=== PATIENT | male | born 1965 | race African-American/Black ===

== ENCOUNTER 2023-08-12 09:33 | Inpatient (IN) | payer MEDICAID, OTHER ==
[~2023-08-12] VITALS: Ht 177.8 cm; Wt 83.6 kg
[2023-08-12 10:17] LABS: BG BASE EXCESS 0.7 mmol/L (-2.0-2.0); BG CARBOXYHEMOGLOBIN 0.4 % (0.5-1.5); BG FRACTION INSPIRED OXYGEN 100; BG METHEMOGLOBIN 0.2 % (0.0-1.5); BG OXYHEMOGLOBIN 96.4 % (94.0-97.0); BG PCO2 30.2 mmHg (35.0-45.0); BG PO2 88.3 mmHg (75.0-100.0); BG SAMPLE SITE RIGHT RADIAL; BG TOTAL HEMOGLOBIN 13.1 g/dL (12.0-18.0); BG VENT MODE MASK - NRB
[2023-08-12 10:27] LABS: HEMATOCRIT. 37.5 % (42.0-52.0); HEMOGLOBIN. 11.7 g/dL (14.0-18.0); MEAN CORPUSCULAR HEMOGLOBIN 22.3 pg (28.0-32.0); MEAN CORPUSCULAR HGB CONC 31.1 g/dL (31.0-37.0); MEAN CORPUSCULAR VOLUME 71.8 fL (80.0-94.0); MEAN PLATELET VOLUME 8.8 fl (7.4-10.4); PLATELET 184 x1000/uL (130-400); RED BLOOD CELL COUNT 5.23 mill/uL (4.7-6.1); RED CELL DISTRIBUTION WIDTH 20.6 % (11.6-14.6); WHITE BLOOD COUNT 5.9 x1000/uL (4.5-11.0)
[2023-08-12 10:31] LABS: DIFFERENTIAL COMMENT 1
[2023-08-12 10:39] LABS: INR 1.2
[2023-08-12 11:15] LABS: CALCIUM 8.4 mg/dL (8.7-10.4)
[2023-08-12 11:16] LABS: POTASSIUM 2.3 mEq/L (3.5-5.1)
[2023-08-12 11:20] LABS: CREATININE 1.7 mg/dL (0.6-1.3)
[2023-08-12 11:48] LABS: CLARITY URINE CLEAR (CLEAR); COLOR URINE YELLOW (YELLOW); GLUCOSE URINE NEGATIVE (NEGATIVE); KETONES URINE NEGATIVE (NEGATIVE); LEUKOCYTE ESTERASE URINE NEGATIVE (NEGATIVE); NITRITE URINE NEGATIVE (NEGATIVE); OCCULT BLOOD URINE NEGATIVE (NEGATIVE); PH URINE 6.5 (4.5-8.0); PROTEIN URINE NEGATIVE (NEGATIVE); SPECIFIC GRAVITY URINE 1.015 (1.005-1.030)
[2023-08-12] MEDS: POTASSIUM CHLORIDE 20MEQ/PACKET PO ONE (12:11)
[2023-08-12 13:10] LABS: ANISOCYTOSIS 1+; MICROCYTOSIS 1+
[2023-08-12 13:12] LABS: PLATELET ESTIMATE NORMAL
[2023-08-12] MEDS: SODIUM CHLORIDE 0.9% 250 ML IV NR (13:40)
[2023-08-12] MEDS: IPRATROPIUM/ALBUTEROL 0.5-3(2.5)MG/3ML NEB HHN PRN (14:32)
[2023-08-12] MEDS: ENOXAPARIN 80MG/0.8ML SYR SUBCUT ONE (17:02)
[2023-08-12 20:00] VITALS: PULSE 81; RESP 16
[2023-08-12] MEDS: METOPROLOL TARTRATE 50MG TABLET PO SCH (20:30)
[2023-08-12] MEDS ORDERED: AZITHROMYCIN 500MG/250ML 250 ML IV SCH (20:30)
[2023-08-12 21:12] LABS: TROPONIN I HIGH SENSITIVITY 14 ng/L (3.0-53)
[2023-08-12 22:14] VITALS: BP 107/78; PULSE 78; RESP 16; TEMP 98.7
[2023-08-12 22:24] VITALS: BP 107/78; PULSE 78; RESP 18; TEMP 98.7
[2023-08-12] MEDS: METHYLPREDNISOLONE SOD SUCC 40MG/ML (ACT-O-VIAL) IV SCH (23:38)
[2023-08-12] MEDS: CEFTRIAXONE 1GM/50ML 50 ML IV SCH (23:38)
[2023-08-12] MEDS: APIXABAN 5 MG TABLET PO SCH (23:38)
[2023-08-13] VITALS (12 sets, daily range): BP systolic 100–112; BP diastolic 71–80; PULSE 73–97; RESP 16–25; TEMP 97.5–98.5; O2SAT 91–98
[2023-08-13] MEDS ORDERED: ONDANSETRON HCL 4MG/2ML INJ IV PRN (00:30)
[2023-08-13] MEDS ORDERED: ACETAMINOPHEN 325MG TABLET PO PRN (00:30)
[2023-08-13 01:58] LABS: *AMPHETAMINES SCREEN URINE NEGATIVE (NEGATIVE); *BARBITURATES SCREEN URINE NEGATIVE (NEGATIVE); *BENZODIAZEPINES SCREEN URINE NEGATIVE (NEGATIVE); *COCAINE SCREEN URINE NEGATIVE (NEGATIVE); CANNABINOID URINE SCREEN NEGATIVE (NEGATIVE); ECSTASY MDMA SCREEN URINE NEGATIVE (NEGATIVE); METHADONE URINE SCREEN NEGATIVE (NEGATIVE); OPIATES URINE SCREEN NEGATIVE (NEGATIVE); PHENCYCLIDINE URINE SCREEN NEGATIVE (NEGATIVE)
[2023-08-13 07:26] LABS: HEPATITIS B SURFACE ANTIGEN NEGATIVE (Negative)
[2023-08-13 07:47] LABS: HEPATITIS C AB NON REACTIVE (Neg) (Negative)
[2023-08-13 09:07] LABS: BASOPHILS % 0.1 % (0.0-2.0); DIFFERENTIAL COMMENT 0; EOSINOPHILS % 0.1 % (0.0-5.0); HEMATOCRIT. 36.2 % (42.0-52.0); HEMOGLOBIN. 11.4 g/dL (14.0-18.0); LYMPHOCYTES % 8.4 % (20.0-50.0); MEAN CORPUSCULAR HEMOGLOBIN 22.5 pg (28.0-32.0); MEAN CORPUSCULAR HGB CONC 31.5 g/dL (31.0-37.0); MEAN CORPUSCULAR VOLUME 71.3 fL (80.0-94.0); MONOCYTES % 2.5 % (2.0-8.0); NEUTROPHILS % 88.9 % (40.0-76.0); PLATELET 159 x1000/uL (130-400); RED BLOOD CELL COUNT 5.07 mill/uL (4.7-6.1); RED CELL DISTRIBUTION WIDTH 20.8 % (11.6-14.6); WHITE BLOOD COUNT 3.9 x1000/uL (4.5-11.0)
[2023-08-13 09:15] LABS: CHLORIDE 101 mEq/L (98-107); SODIUM 133 mEq/L (136-145)
[2023-08-13 09:16] LABS: CALCIUM 8.5 mg/dL (8.7-10.4); CARBON DIOXIDE 24 mEq/L (21-32)
[2023-08-13 09:21] LABS: CREATININE 1.5 mg/dL (0.6-1.3); GLUCOSE 149 mg/dL (70-105); UREA NITROGEN BLOOD 33 mg/dL (9-23)
[2023-08-13 09:23] LABS: PHOSPHORUS 2.4 mg/dL (2.5-4.9)
[2023-08-13] MEDS: IPRATROPIUM/ALBUTEROL 0.5-3(2.5)MG/3ML NEB HHN SCH (09:33)
[2023-08-13] MEDS ORDERED: AZITHROMYCIN 250 MG TABLET PO SCH (10:00)
[2023-08-13] MEDS ORDERED: APIX5TAB PO (11:55)
[2023-08-13] MEDS ORDERED: TADA20TA PO (12:01)
[2023-08-13] MEDS ORDERED: AMBR10TA3 PO (12:03)
[2023-08-13] MEDS ORDERED: FURO40TA5 PO (12:06)
[2023-08-13 15:57] LABS: POTASSIUM 2.7 mEq/L (3.5-5.1)
[2023-08-13] MEDS: POTASSIUM CHLORIDE 20MEQ TABLET SR PO SCH (21:32)
[2023-08-13] MEDS: SILDENAFIL CITRATE 20MG TABLET PO SCH (21:33)
[2023-08-13] MEDS: FUROSEMIDE 40MG TABLET PO SCH (21:34)
[2023-08-13] MEDS: TRAZODONE HCL 50MG TABLET PO SCH (21:35)
[2023-08-14] VITALS (12 sets, daily range): BP systolic 80–106; BP diastolic 56–81; PULSE 70–88; RESP 14–24; TEMP 97.2–97.9; O2SAT 92–98
[2023-08-14] MEDS: POTASSIUM CHLORIDE 20MEQ TABLET SR PO SCH (03:30)
[2023-08-14] MEDS: LACTULOSE 20G/30ML UDC PO NR (17:02)
[2023-08-15] VITALS (11 sets, daily range): BP systolic 97–127; BP diastolic 70–98; PULSE 78–96; RESP 18–32; TEMP 97.4–98.3; O2SAT 94–97
[2023-08-15] MEDS: DOCUSATE SODIUM 250MG CAPSULE PO SCH (08:16)
[2023-08-15] MEDS: LACTULOSE 20G/30ML UDC PO NR (13:11)
[2023-08-15] MEDS ORDERED: TADA20TA31 PO (13:46)
[2023-08-15] MEDS ORDERED: AMBR10TA3 PO (13:51)
[2023-08-15] MEDS ORDERED: APIX5TAB PO (13:51)
[2023-08-15] MEDS ORDERED: FURO40TA5 PO (13:52)
[2023-08-15 16:55] LABS: CHLORIDE 104 mEq/L (98-107); SODIUM 136 mEq/L (136-145)
[2023-08-15 16:56] LABS: CALCIUM 8.8 mg/dL (8.7-10.4); CARBON DIOXIDE 24 mEq/L (21-32)
[2023-08-15 17:01] LABS: CREATININE 1.3 mg/dL (0.6-1.3); GLUCOSE 88 mg/dL (70-105); UREA NITROGEN BLOOD 29 mg/dL (9-23)
[2023-08-15 17:16] LABS: POTASSIUM 2.8 mEq/L (3.5-5.1)
[2023-08-15] MEDS: POTASSIUM CHLORIDE 20MEQ TABLET SR PO NR ×2 (17:42→21:26)
[2023-08-15] MEDS: FUROSEMIDE 40MG TABLET PO SCH (17:42)
[2023-08-16] VITALS (12 sets, daily range): BP systolic 99–119; BP diastolic 60–87; PULSE 66–99; RESP 17–32; TEMP 97.2–98.3; O2SAT 93–95
[2023-08-16] MEDS: LACTULOSE 20G/30ML UDC PO PRN (08:58)
[2023-08-16] MEDS: POTASSIUM CHLORIDE 20MEQ TABLET SR PO SCH (08:59)
[2023-08-16] MEDS ORDERED: POTA-205 MT (09:58)
[2023-08-16 10:33] LABS: CALCIUM 8.8 mg/dL (8.7-10.4); CARBON DIOXIDE 24 mEq/L (21-32); CHLORIDE 105 mEq/L (98-107); POTASSIUM 3.3 mEq/L (3.5-5.1); SODIUM 138 mEq/L (136-145)
[2023-08-16 10:38] LABS: GLUCOSE 86 mg/dL (70-105)
[2023-08-16 10:39] LABS: CREATININE 1.3 mg/dL (0.6-1.3); UREA NITROGEN BLOOD 21 mg/dL (9-23)
[2023-08-16] MEDS: BISACODYL 10MG SUPP PR PRN (11:23)
[2023-08-16] MEDS: SORBITOL 70% SOLN 30ML PO NR (13:36)
[2023-08-16] MEDS: SENNOSIDES 8.6MG TABLET PO SCH (22:38)
[2023-08-17] VITALS (13 sets, daily range): BP systolic 98–141; BP diastolic 69–77; PULSE 70–91; RESP 18–28; TEMP 97.2–98.3; O2SAT 93–97
[2023-08-17] MEDS: POLYETHYLENE GLYCOL 3350 (17GM) 1 DOSE PACK PO SCH (08:42)
[2023-08-17] MEDS ORDERED: SPIR25TA6 MT (10:56)
[2023-08-18] VITALS: BP 101/72; PULSE 77; RESP 14; TEMP 98
[2023-08-18 04:00] VITALS: PULSE 67; RESP 0; RESP 16; TEMP 98
[2023-08-18 06:36] VITALS: BP 93/55; PULSE 65; RESP 14
[2023-08-18 08:00] VITALS: PULSE 67; RESP 16; TEMP 98
== END 2023-08-18 13:04 | disposition home or self-care (01) | DRG 194 ==
LOC: ER 09:33 → EDBEDREQ 11:52 → EDBEDREQTM 11:52 → 3WST 17:45
PROVIDERS: ADMIT Internal Medicine; ATTEND Internal Medicine
DX: I11.0 Hypertensive heart disease with heart failure (principal); N17.0 Acute kidney failure with tubular necrosis; J96.20 Acute and chronic respiratory failure, unspecified whether with hypoxia or hypercapnia; I27.20 Pulmonary hypertension, unspecified; J18.9 Pneumonia, unspecified organism; I27.21 Secondary pulmonary arterial hypertension; Z99.81 Dependence on supplemental oxygen; I48.91 Unspecified atrial fibrillation; I50.33 Acute on chronic diastolic (congestive) heart failure; E87.6 Hypokalemia; K59.00 Constipation, unspecified
CPT/HCPCS: 36415; 36600; 71045; 74018; 80048; 80305; 81003; 82375; 82805; 83605; 83735; 84100; 84145; 84484; 85025; 85379; 86705; 87340; 93005; 93306; 94640; 99285; J0696; J1650; J2920